=== PATIENT | female | born 1980 | race Caucasian/White ===

== ENCOUNTER 2020-07-24 13:58 | Inpatient (IN) ==
[2020-07-24 15:28] LABS: Bilirubin,Urine Negative (Negative); Blood,Urine Negative (Negative); Clarity,Urine Clear (Clear); Color,Urine Colorless (Yellow); Glucose,Urine (UA) Normal (Normal); Ketones,Urine Negative (Negative); Leukocyte Esterase,Urine Negative (Negative); Nitrite,Urine Negative (Negative); PH,Urine 6.5 pH Units (5.0-8.0); Protein,Urine Negative (Neg-Trace); Specific Gravity,Urine 1.009 (1.010-1.025); Urobilinogen,Urine Normal (Normal)
[2020-07-24 16:03] LABS: Basophils # 0.1 K/mcL (0.0-0.2); Basophils % 0.5 %; Eosinophils # 0.2 K/mcL (0.0-0.6); Eosinophils % 1.1 %; Hematocrit 43.7 % (35.3-44.9); Hemoglobin 14.4 g/dL (11.5-15.4); Immature Granulocytes % 0.5 % (0-4); Lymphocytes # 3.6 K/mcL (0.6-4.6); Mean Corpuscular Hemoglobin 29.9 pg (28.0-33.3); Mean Corpuscular Volume 90.9 fL (83.0-100.0); Mean Platelet Volume 9.6 fL (9.4-12.4); Monocytes % 5.9 %; Neutrophils # 11.5 K/mcL (1.6-8.9); Platelet Count 361 K/mcL (140-400); Red Blood Count 4.81 M/mcL (3.82-4.97); Red Cell Distribution Width 13.4 % (11.5-14.5); White Blood Count 16.4 K/mcL (4.3-11.1)
[2020-07-24 16:19] LABS: Albumin/Globulin Ratio 1.3 (1.1-2.2); Bilirubin,Direct 0.1 mg/dL (0.0-0.2); Bilirubin,Indirect 0.3 mg/dL (0.0-1.0); Bilirubin,Total 0.4 mg/dL (0.3-1.0); Globulin 3.2 g/dL (2.4-3.5); Total Protein 7.2 g/dL (6.4-8.9)
[2020-07-24] MEDS ORDERED: Isovue-370 500 ML BOTTLE IVP ONE (16:49)
[2020-07-24 16:51] LABS: BUN/Creatinine Ratio 13 (6-26); Blood Urea Nitrogen 9 mg/dL (6-20); Calcium 9.5 mg/dL (8.6-10.3); Carbon Dioxide 19 mEq/L (23-29); Chloride 108 mEq/L (98-107); Glucose 100 mg/dL (70-105); Osmolality,Calculated 287 (280-300); Potassium 3.6 mEq/L (3.5-5.1); Sodium 139 mEq/L (136-145); Troponin I < 0.03 ng/mL (< 0.04); eGFR For African Americans > 60 (> 60); eGFR For Non-African Americans > 60 (> 60)
[2020-07-24] MEDS ORDERED: *HR* Heparin 5,000 UNIT/ML VIAL IVP PRN ×2 (18:16)
[2020-07-24] MEDS: Heparin 25,000UNIT/250ML 1/2NS 25,000 UNIT/250 ML IV.SOLN IVC SCH (19:47)
[2020-07-24 19:52] LABS: Hematocrit 42.8 % (35.3-44.9); Hemoglobin 14.4 g/dL (11.5-15.4); Mean Corpuscular HGB Conc 33.6 g/dL (31.6-35.5); Mean Corpuscular Hemoglobin 30.8 pg (28.0-33.3); Mean Corpuscular Volume 91.6 fL (83.0-100.0); Mean Platelet Volume 9.6 fL (9.4-12.4); Platelet Count 358 K/mcL (140-400); Red Blood Count 4.67 M/mcL (3.82-4.97); Red Cell Distribution Width 13.6 % (11.5-14.5); White Blood Count 16.6 K/mcL (4.3-11.1)
[2020-07-24] MEDS ORDERED: *HR* LORazepam 2 MG/ML VIAL IVP ONE (20:10)
[2020-07-24 20:26] LABS: Heparin anti-factor XA UFH < 0.04 IU/mL (0.30-0.70); Prothrombin Time 11.8 Seconds (9.4-12.1)
[2020-07-24] MEDS ORDERED: Naloxone 0.4 MG/ML INJ IVP PRN ×2 (20:26→23:14)
[2020-07-24] MEDS ORDERED: Acetaminophen 325 MG TABLET PO PRN (23:14)
[2020-07-25] MEDS: *HR* HYDROcodone/Acet 5/325 mg TABLET PO PRN ×3 (00:01→21:33)
[2020-07-25 02:08] LABS: Basophils # 0.1 K/mcL (0.0-0.2); Basophils % 0.5 %; Eosinophils # 0.3 K/mcL (0.0-0.6); Eosinophils % 1.6 %; Hematocrit 40.9 % (35.3-44.9); Hemoglobin 13.5 g/dL (11.5-15.4); Immature Granulocytes % 0.6 % (0-4); Lymphocytes # 3.5 K/mcL (0.6-4.6); Lymphocytes % 21.9 %; Mean Corpuscular Hemoglobin 30.3 pg (28.0-33.3); Mean Corpuscular Volume 91.7 fL (83.0-100.0); Monocytes # 1.2 K/mcL (0.0-1.3); Monocytes % 7.8 %; Neutrophils # 10.7 K/mcL (1.6-8.9); Platelet Count 332 K/mcL (140-400); Red Blood Count 4.46 M/mcL (3.82-4.97); Red Cell Distribution Width 13.6 % (11.5-14.5); Segmented Neutrophils % 67.6 %; White Blood Count 15.9 K/mcL (4.3-11.1)
[2020-07-25 02:26] LABS: BUN/Creatinine Ratio 14 (6-26); Blood Urea Nitrogen 10 mg/dL (6-20); Calcium 9.2 mg/dL (8.6-10.3); Carbon Dioxide 22 mEq/L (23-29); Chloride 106 mEq/L (98-107); Glucose 153 mg/dL (70-105); Osmolality,Calculated 286 (280-300); Potassium 3.5 mEq/L (3.5-5.1); Sodium 137 mEq/L (136-145); eGFR For African Americans > 60 (> 60); eGFR For Non-African Americans > 60 (> 60)
[2020-07-25] MEDS: *HR* LORazepam 2 MG/ML VIAL IVP PRN ×2 (02:32→21:23)
[2020-07-25] MEDS: Heparin 25,000UNIT/250ML 1/2NS 25,000 UNIT/250 ML IV.SOLN IVC SCH (08:46)
[2020-07-25] MEDS: Loratadine 10 MG TABLET PO SCH (08:47)
[2020-07-25] MEDS: Multivit/Ca/Min/Fe/FA 1 TAB TABLET PO SCH (08:47)
[2020-07-25 11:38] LABS: Adenovirus Not Detected (Not Detect); Bordetella Pertussis Not Detected (Not Detect); Chlamydophila pneumoniae Not Detected (Not Detect); Coronavirus 229E Not Detected (Not Detect); Coronavirus HKU1 Not Detected (Not Detect); Coronavirus NL63 Not Detected (Not Detect); Coronavirus OC43 Not Detected (Not Detect); Human Metapneumovirus Not Detected (Not Detect); Human Rhinovirus/Enterovirus Not Detected (Not Detect); Influenza A Subtype 2009 H1 Not Detected (Not Detect); Influenza B Not Detected (Not Detect); Mycoplasma pneumoniae Not Detected (Not Detect); Parainfluenza Virus 1 Not Detected (Not Detect); Parainfluenza Virus 2 Not Detected (Not Detect); Parainfluenza Virus 3 Not Detected (Not Detect); Parainfluenza Virus 4 Not Detected (Not Detect); Respiratory Syncytial Virus Not Detected (Not Detect); SARS-CoV-2 Not Detected (Not Detect)
[2020-07-25] MEDS ORDERED: *HR* FentaNYL (PF) 100 MCG/2 ML VIAL ONE (11:41)
[2020-07-25] MEDS ORDERED: *HR* Propofol 200 MG/20 ML VIAL IVP ONE ×2 (11:41→12:57)
[2020-07-25] MEDS ORDERED: *HR* Succinylcholine 200 MG/10 ML VIAL IVP ONE (11:43)
[2020-07-25] MEDS ORDERED: Lidocaine -MPF 4% 5 ML AMPUL ONE (11:43)
[2020-07-25] MEDS ORDERED: Lidocaine -MPF 2% 2 ML VIAL ONE (11:43)
[2020-07-25] MEDS ORDERED: Ondansetron 4 MG/2 ML VIAL ONE (11:43)
[2020-07-25] MEDS ORDERED: *HR* Midazolam HCl 2 MG/2 ML VIAL ONE (12:04)
[2020-07-25] MEDS ORDERED: Ondansetron 4 MG/2 ML VIAL IVP PRN (12:59)
[2020-07-25] MEDS ORDERED: Albuterol 2.5 MG/3 ML NEBULIZER IH PRN (12:59)
[2020-07-25] MEDS ORDERED: *HR* EPINEPHrine 1 MG/10 ML SYRINGE INTRATRACH PRN (13:10)
[2020-07-25] MEDS ORDERED: Gadolinium Contrast Agent (WT Based) IV PRN (14:07)
[2020-07-25] MEDS ORDERED: Isovue-370 500 ML BOTTLE IVP ONE (15:36)
[2020-07-25] MEDS: levoFLOXacin 750 MG TABLET PO SCH (15:46)
[2020-07-25 21:25] LABS: Appearance of Body Fluid Slightly Hazy (Clear); Volume of Body Fluid 20 mL
[2020-07-25] MEDS ORDERED: Nicotine 21 MG PATCH.TD24 TD SCH (23:30)
[2020-07-26 05:04] LABS: Hematocrit 40.6 % (35.3-44.9); Hemoglobin 13.3 g/dL (11.5-15.4); Mean Corpuscular HGB Conc 32.8 g/dL (31.6-35.5); Mean Corpuscular Hemoglobin 30.4 pg (28.0-33.3); Mean Corpuscular Volume 92.9 fL (83.0-100.0); Mean Platelet Volume 9.5 fL (9.4-12.4); Platelet Count 330 K/mcL (140-400); Red Blood Count 4.37 M/mcL (3.82-4.97); Red Cell Distribution Width 13.4 % (11.5-14.5); White Blood Count 19.3 K/mcL (4.3-11.1)
[2020-07-26 05:34] LABS: BUN/Creatinine Ratio 17 (6-26); Blood Urea Nitrogen 11 mg/dL (6-20); Calcium 9.5 mg/dL (8.6-10.3); Carbon Dioxide 26 mEq/L (23-29); Chloride 105 mEq/L (98-107); Glucose 146 mg/dL (70-105); Osmolality,Calculated 286 (280-300); Potassium 4.1 mEq/L (3.5-5.1); Sodium 137 mEq/L (136-145); eGFR For African Americans > 60 (> 60); eGFR For Non-African Americans > 60 (> 60)
[2020-07-26 07:38] VITALS: BP 123/79
[2020-07-26] MEDS: Multivit/Ca/Min/Fe/FA 1 TAB TABLET PO SCH (08:17)
[2020-07-26] MEDS: Loratadine 10 MG TABLET PO SCH (08:17)
[2020-07-26] MEDS: levoFLOXacin 750 MG TABLET PO SCH (08:17)
== END 2020-07-26 08:34 | disposition home or self-care (01) | DRG 136 ==
LOC: EMEROOARM 13:58 → 2ANU 13:58 → SUATTDRO 19:49 → 2ANU 20:40
PROVIDERS: ADMIT Internal Medicine; ATTEND Internal Medicine
PROC: ENDOLBX (2020-07-25 12:30)

== ENCOUNTER 2020-10-26 22:09 | Observation (INO) ==
[2020-10-26 22:24] VITALS: TEMP 98
[2020-10-26] MEDS ORDERED: Isovue-370 500 ML BOTTLE IVP ONE (23:19)
[2020-10-26] MEDS ORDERED: Ipratropium/Albuterol Neb 3 ML IH ONE (23:29)
[2020-10-26 23:50] LABS: Basophils % 0.3 %; Eosinophils % 0.6 %; Hematocrit 31.3 % (35.3-44.9); Hemoglobin 10.8 g/dL (11.5-15.4); Immature Granulocytes % 0.8 % (0-4); Lymphocytes # 0.8 K/mcL (0.6-4.6); Lymphocytes % 13.1 %; Mean Corpuscular HGB Conc 34.5 g/dL (31.6-35.5); Mean Corpuscular Hemoglobin 33.9 pg (28.0-33.3); Mean Corpuscular Volume 98.1 fL (83.0-100.0); Monocytes % 15.5 %; Neutrophils # 4.3 K/mcL (1.6-8.9); Platelet Count 130 K/mcL (140-400); Red Blood Count 3.19 M/mcL (3.82-4.97); Red Cell Distribution Width 18.1 % (11.5-14.5); Segmented Neutrophils % 69.7 %; White Blood Count 6.2 K/mcL (4.3-11.1)
[2020-10-26 23:56] LABS: BUN/Creatinine Ratio 9 (6-26); Blood Urea Nitrogen 7 mg/dL (6-20); Calcium 8.7 mg/dL (8.6-10.3); Carbon Dioxide 25 mEq/L (23-29); Chloride 106 mEq/L (98-107); Glucose 120 mg/dL (70-105); Osmolality,Calculated 289 (280-300); Potassium 3.5 mEq/L (3.5-5.1); Sodium 140 mEq/L (136-145); eGFR For African Americans > 60 (> 60); eGFR For Non-African Americans > 60 (> 60)
[2020-10-26 23:58] LABS: Troponin I < 0.03 ng/mL (< 0.04)
[2020-10-27 01:34] LABS: Adenovirus Not Detected (Not Detect); Bordetella Pertussis Not Detected (Not Detect); Chlamydophila pneumoniae Not Detected (Not Detect); Coronavirus 229E Not Detected (Not Detect); Coronavirus HKU1 Not Detected (Not Detect); Coronavirus NL63 Not Detected (Not Detect); Coronavirus OC43 Not Detected (Not Detect); Human Metapneumovirus Not Detected (Not Detect); Human Rhinovirus/Enterovirus Not Detected (Not Detect); Influenza A Subtype 2009 H1 Not Detected (Not Detect); Influenza B Not Detected (Not Detect); Mycoplasma pneumoniae Not Detected (Not Detect); Parainfluenza Virus 1 Not Detected (Not Detect); Parainfluenza Virus 2 Not Detected (Not Detect); Parainfluenza Virus 3 Not Detected (Not Detect); Parainfluenza Virus 4 Not Detected (Not Detect); Respiratory Syncytial Virus Not Detected (Not Detect); SARS-CoV-2 Not Detected (Not Detect)
[2020-10-27] MEDS ORDERED: Morphine Sulfate 2 MG/ML SYRINGE IVP ONE (03:59)
[2020-10-27] MEDS ORDERED: Ondansetron 4 MG/2 ML VIAL IVP ONE (04:03)
[2020-10-27] MEDS ORDERED: levoFLOXacin 750 MG/150 ML 750 MG/150 ML BAG IVPB ONE (04:10)
[2020-10-27] MEDS ORDERED: levoFLOXacin 750 MG TABLET PO ONE (04:10)
[2020-10-27 04:12] VITALS: O2SAT 92
[2020-10-27] MEDS ORDERED: Naloxone 0.4 MG/ML INJ IVP PRN (04:47)
[2020-10-27] MEDS ORDERED: Acetaminophen 325 MG TABLET PO PRN (04:47)
[2020-10-27] MEDS ORDERED: Ondansetron 4 MG/2 ML VIAL IVP PRN (04:47)
[2020-10-27] MEDS ORDERED: 0.9 % Sodium Chloride 1,000 ML IVC SCH (05:00)
[2020-10-27] MEDS ORDERED: Ipratropium/Albuterol Neb 3 ML IH PRN (05:49)
[2020-10-27 05:56] VITALS: BP 146/82; PULSE 103
[2020-10-27 07:02] LABS: Prothrombin Time 11.3 Seconds (9.4-12.1)
[2020-10-27 07:13] LABS: BUN/Creatinine Ratio 7 (6-26); Blood Urea Nitrogen 7 mg/dL (6-20); Calcium 8.7 mg/dL (8.6-10.3); Carbon Dioxide 28 mEq/L (23-29); Chloride 106 mEq/L (98-107); Glucose 115 mg/dL (70-105); Osmolality,Calculated 291 (280-300); Potassium 3.5 mEq/L (3.5-5.1); Sodium 141 mEq/L (136-145); eGFR For African Americans > 60 (> 60); eGFR For Non-African Americans > 60 (> 60)
[2020-10-27 07:14] LABS: % Iron Saturation 32 % (15-50); Iron 80 mcg/dL (50-170); Transferrin 179 mg/dL (203-362)
[2020-10-27 07:29] LABS: Ferritin 648 ng/mL (10-120)
[2020-10-28] MEDS ORDERED: levoFLOXacin 750 MG/150 ML 750 MG/150 ML BAG IVPB SCH (00:01)
== END 2020-10-27 11:35 | disposition home or self-care (01) ==
LOC: EMEROOARM 22:09 → CDU 22:09 → SUATTDRO 10-27 04:21 → CDU 10-27 05:40
PROVIDERS: ADMIT Student in an Organized Health Care Education/Training Program; ATTEND Internal Medicine